=== PATIENT | female | born 1960 | race Caucasian/White ===

== ENCOUNTER 2020-02-25 22:40 | Emergency (ER) | payer SELFPAY ==
[2020-02-26] MEDS ORDERED: METOCLOPRAMIDE HCL INJ/PF 10 MG/2 ML SDV IV ONE (04:09)
[2020-02-26] MEDS ORDERED: DIPHENHYDRAMINE HCL 50 MG/ML VIAL IV ONE (04:09)
--- NOTE | 2020-02-26 04:13 | ER Document Report ---
ED General - General Chief Complaint: Headache Stated Complaint: HEADACHE,CHILLS Time Seen by Provider: 02/26/20 03:52 Notes: Patient is a 60-year-old female that comes emergency department with multiple complaints. First complaint is generalized sick symptoms that started yesterday including cough, sore throat, ear pain, body aches. She also states she has been getting intermittent pain sensations in her chest along with having coughing episodes. Secondarily patient states that she has had a headache intermittently for the better part of a week that she has been taking Tylenol for and she currently has a throbbing headache. She denies neck stiffness, she has not had a fever. She denies head injury. Third complaint is patient has had intermittent suicidal ideations and is feeling very depressed. She reports that she has multiple factors going on that are making her depressed including job situation, home situation, and insurance situation. She denies having a plan or having a history of suicide attempts. She is on Paxil for depression, she has a history of asthma, diabetes, and she reports she had an MRI although she does clarify that this was during delivery of a child where she had hypovolemic shock and they told her she may have damaged her heart. She has never had a stent and does not follow with cardiology. She denies smoking, recreational drugs, alcohol. - Related Data Allergies/Adverse Reactions: azithromycin [From Zithromax] Allergy (Verified 02/26/20 06:31) morphine Allergy (Verified 02/26/20 06:31) Past Medical History - General Information source: Patient - Social History Smoking Status: Never Smoker Frequency of alcohol use: None Drug Abuse: None Lives with: Friend Family History: Reviewed & Not Pertinent Pulmonary Medical History: Reports: Hx Asthma Endocrine Medical History: Reports: Hx Diabetes Mellitus Type 2 - Immunizations Hx Diphtheria, Pertussis, Tetanus Vaccination: Yes Review of Systems - Review of Systems Constitutional: See HPI EENT: See HPI Cardiovascular: No symptoms reported Respiratory: See HPI Gastrointestinal: No symptoms reported Genitourinary: No symptoms reported Female Genitourinary: No symptoms reported Musculoskeletal: No symptoms reported Skin: No symptoms reported Hematologic/Lymphatic: No symptoms reported Neurological/Psychological: See HPI Physical Exam - Vital signs Vitals: Temp Pulse Resp BP Pulse Ox 99.2 F 83 22 H 141/72 H 99 02/25/20 22:47 02/25/20 22:47 02/25/20 22:47 02/25/20 22:47 02/25/20 22:47 - Notes Notes: GENERAL: Alert, interacts well. No acute distress. HEAD: Normocephalic, atraumatic. EYES: Pupils equal, round, and reactive to light. Extraocular movements intact. ENT: Oral mucosa moist, tongue midline. Oropharynx unremarkable. Airway patent. Mild nasal congestion, sinuses non-tender, ear canals unremarkable, TM's intact. NECK: Full range of motion. Supple. Trachea midline. No lymphadenopathy. LUNGS: Clear to auscultation bilaterally, no wheezes, rales, or rhonchi. No respiratory distress. Non-tender chest wall. Occasional mild coughing episodes. HEART: Regular rate and rhythm. No murmur ABDOMEN: Soft, non-tender. Non-distended. EXTREMITIES: Moves all 4 extremities spontaneously. No edema, normal radial and dorsalis pedis pulses bilaterally. No cyanosis. BACK: no cervical, thoracic, lumbar midline tenderness. No saddle anesthesia, normal distal neurovascular exam. Moves all extremities in full range of motion. NEUROLOGICAL: Alert and oriented x3. Normal speech. Cranial nerves II through XII grossly intact. Strength 5/5 in all extremities. PSYCH: Normal affect, normal mood. SKIN: Warm, dry, normal turgor. No rashes or lesions noted. Course - Re-evaluation Re-evalutation: Patient with some cough on my exam, mild congestion, most likely viral upper re spiratory illness. Work-up completely unremarkable including CBC, chemistry, troponin, chest x-ray, EKG, urinalysis, drug screening. Patient was treated for headache, on reevaluation she states she is significantly improved but still is requesting something to rest and for intermittent headaches. She was given Haldol p.o. I did discuss all details with patient. Patient is medically cleared, she is requesting mental health evaluation for depression although she denies suicidal intentions or plan. She denies HI. Because of patient's symptoms patient was also tested for COVID-19. Patient with no additional requests, she states appreciation. Patient is medically cleared pending mental health evaluation. - Vital Signs Vital signs: Temp Pulse Resp BP Pulse Ox 98.7 F 70 18 138/71 H 100 02/26/20 02:58 02/26/20 02:58 02/26/20 02:58 02/26/20 02:58 02/26/20 02:58 - Laboratory Result Diagrams: 02/26/20 04:40 02/26/20 04:40 Laboratory results interpreted by me: 02/26/20 02/26/20 02/26/20 04:40 04:40 04:40 Lymph % (Auto) 48.9 H Seg Neutrophils % 41.6 L Glucose 150 H Total Protein 6.0 L Urine Glucose (UA) 150 H Salicylates < 1.0 L Acetaminophen < 10 L - EKG Interpretation by Me Additional EKG results interpreted by me: EKG shows sinus rhythm at a rate of 66, QTc 441, left axis deviation. No T wave inversions or ST segment changes in consecutive leads. Discharge - Discharge Clinical Impression: Homelessness Upper respiratory infection Qualifiers: URI type: unspecified URI Qualified Code(s): J06.9 - Acute upper respiratory infection, unspecified Depression Qualifiers: Depression Type: unspecified Qualified Code(s): F32.9 - Major depressive disorder, single episode, unspecified Condition: Stable Disposition: PSYCH HOSP/UNIT
[2020-02-26 05:14] LABS: ABSOLUTE LYMPHOCYTES (AUTO) 2.2 10^3/uL (0.5-4.7); ABSOLUTE MONOCYTES (AUTO) 0.4 10^3/uL (0.1-1.4); ABSOLUTE NEUT (AUTO) 1.8 10^3/uL (1.7-8.2); APPEARANCE,URINE CLEAR; BASOPHILS % (AUTO) 0.5 % (0-2); BILIRUBIN,URINE NEGATIVE (NEGATIVE); COLOR,URINE STRAW; GLUCOSE, URINE 150 mg/dL (NEGATIVE); HEMATOCRIT 39.9 % (36.0-47.0); HEMOGLOBIN 13.5 g/dL (12.0-15.5); KETONES,URINE NEGATIVE (NEGATIVE); LEUKOCYTE ESTERASE,URINE NEGATIVE (NEGATIVE); LYMPHOCYTES % (AUTO) 48.9 % (13-45); MEAN CORPUSCULAR HEMOGLOBIN 28.9 pg (27.0-33.4); MEAN CORPUSCULAR HGB CONC 33.9 g/dL (32.0-36.0); MEAN CORPUSCULAR VOLUME 85 fl (80-97); NITRITE,URINE NEGATIVE (NEGATIVE); PLATELET COUNT 183 10^3/uL (150-450); PROTEIN,URINE NEGATIVE (NEGATIVE); RED BLOOD COUNT 4.68 10^6/uL (3.72-5.28); RED CELL DISTRIBUTION WIDTH 13.7 % (11.5-14.0); SEGMENTED NEUTROPHILS % (AUTO) 41.6 % (42-78); TOTAL CELLS COUNTED % (AUTO) 100 %; URINE SPECIFIC GRAVITY 1.008; UROBILINOGEN,URINE NEGATIVE mg/dL (<2.0); WHITE BLOOD COUNT 4.4 10^3/uL (4.0-10.5)
[2020-02-26 05:18] LABS: ADD MANUAL MICROSCOPIC YES
--- NOTE | 2020-02-26 05:19 | RADIOLOGY REPORT (SQ) ---
EXAM: XR Chest, 1 View EXAM DATE/TIME: 02/26/2020 5:00 AM CLINICAL HISTORY: The patient is 60 years old and is Female; cough, chest pain TECHNIQUE: Frontal view of the chest. COMPARISON: No relevant prior studies available. FINDINGS: LUNGS: Unremarkable. No consolidation. PLEURAL SPACE: Unremarkable. No pneumothorax. HEART: No significant enlargement of the cardiac silhouette. MEDIASTINUM: Unremarkable. BONES/JOINTS: No acute osseous findings. IMPRESSION: No acute findings visualized in the chest.
[2020-02-26 05:22] LABS: RBC,URINE RARE /HPF
[2020-02-26 05:28] LABS: URINE AMPHETAMINES SCREEN NEGATIVE; URINE BARBITURATES SCREEN NEGATIVE; URINE BENZODIAZEPINES SCREEN NEGATIVE; URINE COCAINE SCREEN NEGATIVE; URINE MARIJUANA (THC) SCREEN NEGATIVE; URINE METHADONE SCREEN NEGATIVE; URINE PHENCYCLIDINE SCREEN NEGATIVE
[2020-02-26 05:31] LABS: ALBUMIN 3.9 g/dL (3.5-5.0); ALKALINE PHOSPHATASE 73 U/L (38-126); ANION GAP 7 (5-19); ASPARTATE AMINO TRANSFERASE 24 U/L (14-36); BILIRUBIN,DIRECT 0.2 mg/dL (0.0-0.4); BILIRUBIN,TOTAL 0.5 mg/dL (0.2-1.3); BLOOD UREA NITROGEN 16 mg/dL (7-20); CALCIUM 9.6 mg/dL (8.4-10.2); CARBON DIOXIDE 29 mmol/L (22-30); CHLORIDE 103 mmol/L (98-107); GLUCOSE 150 mg/dL (75-110); POTASSIUM 4.1 mmol/L (3.6-5.0)
[2020-02-26 05:33] LABS: ACETAMINOPHEN < 10 ug/mL (10-30); ALCOHOL < 10 mg/dL (NONE DETECTED); SALICYLATE < 1.0 mg/dL (2.0-20.0)
[2020-02-26] MEDS ORDERED: HALOPERIDOL 5 MG TABLET PO ONE (06:19)
--- NOTE | 2020-02-26 11:20 | EKG REPORT ---
SEVERITY:- OTHERWISE NORMAL ECG - SINUS RHYTHM BORDERLINE LEFT AXIS DEVIATION : Confirmed by: Erica Bell MD 26-Feb-2020 11:19:19
[2020-02-26 12:21] VITALS: BP 128/74
--- NOTE | 2020-02-26 18:34 | PSYCHOLOGICAL NOTE ---
Psych Note - Psych Note Date seen by psych provider: 02/26/20 Time seen by psych provider: 12:20 - Evaluation with patient from [id number]. Psych Note: Patient is a 60 year old female who presented to the Emergency Department late last evening via privately owned vehicle for generalized sickness complaints (cough, sore throat, ear pain, body aches, headache, chest pain), Chest X-ray done and COVID-19 test which was negative, and final complaints were feeling very depressed with intermittent suicidal ideation (no plan, no history) related to job/home/insurance situation. She reported being on Paxil. She is currently a voluntary patient. Patient denied current suicidal and homicidal ideation. She identified when she has suicidal thoughts "they are general." She denied having thoughts of plans. She denied previous attempts at hurting/harming/killing self. She reported she goes to [facility] in [place] where she has medication management and group therapy. She admitted since COVID-19 the group therapy is virtual and she does not have access. Patient stated she is prescribed Paxil 40MG daily, went to a health clinic that increased it to 60MG daily, however she could not afford both pills (40MG and 20MG to equal the 60MG) so only continued with 40MG. Patient i dentified she had been on Xanax (Rad with patient pharmacy linked noted Xanax 0.5MG take half tablet every 8 hours as needed for anxiety, last filled 08/05/2019) for 10 years, was prescribed by a medical doctor initially, then when she went to the psychiatrist they abruptly stopped it due to short term memory loss. Patient commented "i do have memory loss." Patient reported "I have been on a bunch of medications in the past (she could not give names), always had allergic reaction (she did not explain what happened), at one point it was "something with Benadryl that made my heart beat fast and made me anxious." Patient denied previous hospitalizations. She denied family history of mental health. She denied drug and alcohol use. Urine drug screen was negative. She identified her is in [place], he had lost his job which resulted in losing their insurance, home and vehicle. She stated her plan is to go back to [place] and she mentioned a family member that would take her back. Patient was alert and oriented to self, person, place, time and situation. Mood was euthymic with congruent affect. She denied current suicidal and homicidal ideation, noted when she has suicidal thoughts they are general (passive), and denied previous attempts. Patient did not appear to be responding to internal stimuli as evidenced by fair eye contact and answering questions appropriately when addressed. Thought processes were linear and organized. Conversational speech was within normal limits for rate, tone and prosody. Intellectual abilities are estimated to be average. Insight, judgment and impulse control were fair as evidenced by being engaged and discussing stress. Clinical Presentation: Situational Depression Multiple Psychosocial Stresses lost job Homelessness No medical insurance Financial difficulty No transportation/vehicle Impression/Plan: Patient is cleared from acute psychiatric services. She denied current suicidal ideation, noted when she has thoughts they are general (passive), and denied previous attempts. Patient has multiple psychosocial stresses that have likely caused situational depression. She is on Paxil which is a medication that would need titrated versus just stopping and adding something else. Prefer patient see her [facility] provider in [place] as she said her plan is to go back there, her is there and a family member would drive her. Provided patient with the [facility] Street Sheet (economic resource sheet) which highlighted both local mobile crisis numbers, as well as the local homeless fpc which documented Shu Christian as heel caser who might be able to assist with temporary housing or one way bus ticket if needed. Consulted with Dr. Quiles regarding the management and care of patient. ED Physician in agreement with recommendations.
== END 2020-02-26 16:05 | disposition home or self-care (01) ==
LOC: ER 22:40
DX: F32.9 Major depressive disorder, single episode, unspecified (principal); T43.226A Underdosing of selective serotonin reuptake inhibitors, initial encounter; Z91.120 Patient's intentional underdosing of medication regimen due to financial hardship; Z91.14 Patient's other noncompliance with medication regimen; R45.851 Suicidal ideations; J06.9 Acute upper respiratory infection, unspecified; R05 Cough; J02.9 Acute pharyngitis, unspecified; R09.81 Nasal congestion; H92.09 Otalgia, unspecified ear; R07.9 Chest pain, unspecified; R51 Headache; J45.909 Unspecified asthma, uncomplicated; E11.9 Type 2 diabetes mellitus without complications; Z59.0 Homelessness; Z79.899 Other long term (current) drug therapy; Z88.1 Allergy status to other antibiotic agents; Z88.6 Allergy status to analgesic agent; Z88.5 Allergy status to narcotic agent; Z20.828 Contact with and (suspected) exposure to other viral communicable diseases
CPT/HCPCS: 93005; 99285; 96374; 96375; 36415; 80307 ×4; 85025; 87635; 80053; 81001; 84484; 71045; 93010; J1200; J2765; C9803